=== PATIENT | female | born 1990 | race Caucasian/White ===

== ENCOUNTER 2021-07-08 17:11 | Emergency (ER) | payer MEDICAID ==
[~2021-07-08] VITALS: Ht 177.8 cm; Wt 94.0 kg
[2021-07-08 17:13] VITALS: BP 122/83
[2021-07-08] MEDS ORDERED: IBUPROFEN 400MG TABLET PO ONE (20:30)
[2021-07-08] MEDS ORDERED: IBUP-2028 MT (21:55)
[2021-07-08] MEDS ORDERED: HYDR-4001 MT (22:16)
== END 2021-07-08 22:57 | disposition home or self-care (01) ==
LOC: ER 17:11
DX: S82.302A Unspecified fracture of lower end of left tibia, initial encounter for closed fracture (principal); J45.909 Unspecified asthma, uncomplicated; E11.9 Type 2 diabetes mellitus without complications; W18.30XA Fall on same level, unspecified, initial encounter; Y93.89 Activity, other specified; Y92.89 Other specified places as the place of occurrence of the external cause; Y99.8 Other external cause status
CPT/HCPCS: 29515; 73590; 73610; 73630; 99284